=== PATIENT | female | born 1985 | race Caucasian/White ===

== ENCOUNTER 2021-11-03 10:43 | Emergency (ER) | payer BC ==
[~2021-11-03] VITALS: Ht 147.3 cm; Wt 52.2 kg
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
--- NOTE | 2021-11-03 11:02 | NUR ---
PT SEEN BY DR BARROSO
[2021-11-03] MEDS ORDERED: TDAP [DIPH/PERTUSSIS/TET] 0.5 ML VIAL IM ONE ×2 (11:24→11:30)
[2021-11-03 11:39] VITALS: BP 120/72
--- NOTE | 2021-11-03 11:39 | NUR ---
Patient discharged to home in stable condition. Written and verbal after care instructions given. Patient verbalizes understanding of instruction.
== END 2021-11-03 11:41 | disposition home or self-care (01) ==
LOC: ER 10:56
DX: S61.210A Laceration without foreign body of right index finger without damage to nail, initial encounter (principal); S01.81XA Laceration without foreign body of other part of head, initial encounter; W26.8XXA Contact with other sharp object(s), not elsewhere classified, initial encounter; Y93.89 Activity, other specified; Y92.89 Other specified places as the place of occurrence of the external cause; Y99.8 Other external cause status
CPT/HCPCS: 90715

== ENCOUNTER 2022-02-23 14:20 | Emergency (ER) | payer BC ==
[~2022-02-23] VITALS: Ht 149.9 cm; Wt 52.2 kg
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
--- NOTE | 2022-02-23 14:28 | NUR ---
LAST TDAP 11/03/21
[2022-02-23] MEDS ORDERED: LIDOCAINE HCL/PF 1% 30 ML VIAL TP ONE (15:00)
--- NOTE | 2022-02-23 15:01 | NUR ---
DR BARROSO AT BEDSIDE FOR LAC REPAIR
[2022-02-23] MEDS ORDERED: IBUP-1953 PO (15:15)
--- NOTE | 2022-02-23 15:32 | NUR ---
Patient discharged to home in stable condition. Written and verbal after care instructions given. Patient verbalizes understanding of instruction.
[2022-02-23 15:35] VITALS: BP 134/91
== END 2022-02-23 15:35 | disposition home or self-care (01) ==
LOC: ER 14:24
DX: S61.412A Laceration without foreign body of left hand, initial encounter (principal); W26.0XXA Contact with knife, initial encounter; Y93.89 Activity, other specified; Y92.090 Kitchen in other non-institutional residence as the place of occurrence of the external cause; Y99.8 Other external cause status
CPT/HCPCS: 99282; 12001; A6403 ×2